=== PATIENT | female | born 1995 | race Asian ===

== ENCOUNTER 2019-03-26 17:45 | Emergency (ER) | payer OTHER ==
[2019-03-26 18:14] LABS: Urine Appearance Turbid; Urine Bacteria Absent (Absent); Urine Bilirubin Negative (Negative); Urine Blood 2+ (Negative); Urine Color Yellow; Urine Glucose Negative (Negative); Urine Ketones Negative (Negative); Urine Nitrite Negative (Negative); Urine Protein Negative (Negative); Urine Red Blood Cell 3+(>10/hpf) (Absent); Urine Urobilinogen Negative (Negative); Urine White Blood Cell Absent (Absent)
[2019-03-26] MEDS ORDERED: NS 0.9% 1000 ML** 1,000 ML IV ONE (18:15)
[2019-03-26] MEDS ORDERED: Ondansetron INJ* 2 MG/ML VIAL IV ONE (18:16)
--- NOTE | 2019-03-26 18:16 | ED ---
GI/ HPI - HPI Summary HPI Summary: 23 year old female presents with dysuria for the past day. She states three days ago she had nausea that was seen for and given nausea medication so her symptoms resolved. She states that the nausea has returned with some vomiting. She denies any diarrhea or constipation. Denies any abnormal vaginal discharge. Never had this symptoms before. States she has pressure in her lower abdomen and also has left flank pain. Denies any fevers. Has no medical conditions. Hasn't taking anything for her symptoms. - History of Current Complaint Chief Complaint: EDFlankPain Time Seen by Provider: 03/26/19 18:09 Stated Complaint: ABD AND BACK PAIN PER PT Pain Intensity: 7 - Allergy/Home Medications Allergies/Adverse Reactions: Allergies Allergy/AdvReac Type Severity Reaction Status Date / Time No Known Allergies Allergy Verified 03/26/19 17:48 PMH/Surg Hx/FS Hx/Imm Hx Endocrine/Hematology History: Denies: Hx Anticoagulant Therapy Respiratory History: Denies: Hx Asthma Infectious Disease History: No Infectious Disease History: Denies: Traveled Outside the [place] in Last 30 Days - Family History Known Family History: Positive: Non-Contributory Review of Systems Negative: Fever Negative: Chest Pain Negative: Shortness Of Breath Positive: dysuria, flank pain All Other Systems Reviewed And Are Negative: Yes Physical Exam Triage Information Reviewed: Yes Vital Signs On Initial Exam: Initial Vitals Temp Pulse Resp BP Pulse Ox 98.9 F 73 20 141/60 100 03/26/19 17:48 03/26/19 17:48 03/26/19 17:48 03/26/19 17:48 03/26/19 17:48 Vital Signs Reviewed: Yes Appearance: Positive: Well-Appearing Skin: Positive: Warm, Dry Head/Face: Positive: Normal Head/Face Inspection Eyes: Positive: Normal, Conjunctiva Clear ENT: Positive: Pharynx normal Respiratory/Lung Sounds: Positive: Clear to Auscultation, Breath Sounds Present Cardiovascular: Positive: Normal, RRR Abdomen Description: Positive: Nontender, Soft, CVA Tenderness (L) Bowel Sounds: Positive: Present Musculoskeletal: Positive: Normal Neurological: Positive: Normal Psychiatric: Positive: Normal Diagnostics - Vital Signs Vital Signs Temp Pulse Resp BP Pulse Ox 03/26/19 17:48 98.9 F 73 20 141/60 100 - Laboratory Lab Results: Lab Results 03/26/19 Range/Units 18:00 Urine Color Yellow Urine Appearance Turbid Urine pH 8.0 (5-9) Ur Specific Heath 1.020 (1.010-1.030) Urine Protein Negative (Negative) Urine Ketones Negative (Negative) Urine Blood 2+ A (Negative) Urine Nitrate Negative (Negative) Urine Bilirubin Negative (Negative) Urine Urobilinogen Negative (Negative) Ur Leukocyte Esterase Negative (Negative) Urine WBC (Auto) Absent (Absent) Urine RBC (Auto) 3+(>10/hpf) A (Absent) Amorphous Crystals Present A (Absent) Urine Bacteria Absent (Absent) Urine Glucose Negative (Negative) Result Diagrams: 03/26/19 18:34 03/26/19 18:34 Lab Statement: Any lab studies that have been ordered have been reviewed, and results considered in the medical decision making process. - CT abd CT Interpretation Completed By: Radiologist Summary of CT Findings: IMPRESSION: Mildly obstructing 4 mm calculus left UVJ. Re-Evaluation - Re-Evaluation First Eval Re-Evaluation Time: 19:24 Change: Improved Comment: feeling better, discussed getting a CT as patient wants to be sure is a stone Second Eval Re-Evaluation Time: 21:28 Change: Improved Comment: feeling better GIGU Course/Dx - Course Course Of Treatment: 23 year old female presents with dysuria for the past day. She states three days ago she had nausea that was seen for and given nausea medication so her symptoms resolved. She states that the nausea has returned with some vomiting. She denies any diarrhea or constipation. Denies any abnormal vaginal discharge. Never had this symptoms before. States she has pressure in her lower abdomen and also has left flank pain. Denies any fevers. Has no medical conditions. Hasn't taking anything for her symptoms. On exam has left flank tenderness. Nontender abdomen. Urine shows hematuria. wbc normal. crp normal. u/s shows hydro. patient wants to know for certain if has stone so will get CT. ct shows 4mm stone at UVJ. will discharge with pain mediation and flomax. patient has nausea meds at home. told follow up with urology. patient understand and agrees with plan. - Diagnoses Differential Diagnoses - Female: Pyelonephritis, Urinary Tract Infection, Ureteral Calculi Provider Diagnoses: Ureteral stone Discharge ED - Sign-Out/Discharge Documenting (check all that apply): Patient Departure Patient Received Moderate/Deep Sedation with Procedure: No - Discharge Plan Condition: Good Disposition: HOME Prescriptions: HYDROcodone/ACETAMIN 5-325 MG* [Wenden 5-325 TAB*] 1 tab PO Q6H PRN #12 tab MDD 4 PRN Reason: Pain - Severe Tamsulosin CAP* [Flomax CAP*] 0.4 mg PO DAILY #7 cap Patient Education Materials: Ureteral Stones (ED) Referrals: Perez Mills MD [Medical Doctor] - Additional Instructions: Take ibuprofen every 6 hours and norco as needed every 6 hours Take Flomax daily starting tomorrow, first dose given in ED until stone expelled , make sure stand up slowly Follow up with urology, call office tomorrow for appointment Strain urine until collect stone Return to ED if unable to manage pain at home, develop fever, or any new or worsening symptoms - Billing Disposition and Condition Condition: GOOD Disposition: Home
[2019-03-26 18:41] LABS: ABS Lymphocytes 0.9 10^3/ul (1.0-4.8); ABS Monocytes 0.8 10^3/ul (0-0.8); ABS Neutrophils 9.2 10^3/ul (1.5-7.7); Eosinophil % 0.3 %; Hematocrit 36 % (35-47); Hemoglobin 12.4 g/dL (12.0-16.0); Lymphocyte % 8.3 %; Mean Corpuscular HGB Conc 34 g/dL (31-36); Mean Corpuscular Hemoglobin 30 pg (27-31); Mean Corpuscular Volume 88 fL (80-97); Mean Platelet Volume 7.4 fL (7.4-10.4); Platelet Count 244 10^3/uL (150-450); Red Blood Count 4.14 10^6 /uL (3.70-4.87); Red Cell Distribution Width 13 % (10-15)
[2019-03-26 19:00] LABS: ALT 15 U/L (7-52); AST 19 U/L (13-39); Albumin 4.7 g/dL (3.2-5.2); Albumin/Globulin Ratio 1.8 (1-3); Alkaline Phosphatase 55 U/L (34-104); Anion Gap 9 mmol/L (2-11); BUN/Creatinine Ratio 21.7 (8-20); Blood Urea Nitrogen 18 mg/dL (6-24); C Reactive Protein 2.08 mg/L (<8.01); CO2 Carbon Dioxide 27 mmol/L (22-32); Calcium 9.6 mg/dL (8.6-10.3); Chloride 100 mmol/L (101-111); Globulin 2.6 g/dL (2-4); Glucose 104 mg/dL (70-100); Potassium 3.8 mmol/L (3.5-5.0); Sodium 136 mmol/L (135-145); Total Protein 7.3 g/dL (6.4-8.9)
[2019-03-26 19:06] LABS: HCG Pregnancy < 0.60 mIU/mL
[2019-03-26] MEDS ORDERED: Ketorolac INJ* 30 MG/ML 1 ML VIAL IV PUSH ONE (19:06)
[2019-03-26] MEDS ORDERED: Tamsulosin CAP* 0.4 MG PO ONE (21:31)
[2019-03-26 21:50] VITALS: BP 122/81
== END 2019-03-26 21:42 | disposition home or self-care (01) ==
LOC: ED 17:45
DX: N20.1 Calculus of ureter (principal); R30.0 Dysuria; R10.84 Generalized abdominal pain; Z79.899 Other long term (current) drug therapy
CPT/HCPCS: 36415; 74176; 76775; 80053; 81003; 81015; 83605; 83690; 84702; 85025; 86140; 96361; 96374; 96375; 99282; J1885; J2405